=== PATIENT | female | born 1985 | race Hispanic/Latino ===

== ENCOUNTER 2019-04-02 12:32 | Emergency (ER) | payer SELFPAY ==
[2019-04-02] MEDS ORDERED: Lidocaine 1% (PF) 30 ML VIAL ONE (13:15)
[2019-04-02] MEDS ORDERED: HYDROcodone/Acetaminophen 10/325 mg Tablet ONE (13:15)
[2019-04-02] MEDS ORDERED: Adacel (T-DAP) 0.5 ML SYRINGE ONE (13:15)
--- NOTE | 2019-04-02 13:50 | RAD ---
EXAM: XR Wrist 3 Rt View STANDARD PROVIDED CLINICAL HISTORY: Pain FINDINGS: There is no evidence for fracture or other acute osseous abnormality. Alignment appears anatomic. Barbara nt spaces appear preserved. IMPRESSION: No evidence for an acute osseous abnormality. If there is persistent clinical concern, conservative m anagement and follow-up imaging advised.
[2019-04-02] MEDS ORDERED: Bacitracin 1 PK ONE (14:16)
== END 2019-04-02 14:20 | disposition home or self-care (01) ==
LOC: ERS 12:32
DX: S61.511A Laceration without foreign body of right wrist, initial encounter (principal); F17.210 Nicotine dependence, cigarettes, uncomplicated; Z71.6 Tobacco abuse counseling; V87.8XXA Person injured in other specified noncollision transport accidents involving motor vehicle (traffic), initial encounter
CPT/HCPCS: 12001; 90471; 90715; 99406; J2001